=== PATIENT | female | born 1960 | race Two or more races ===

== ENCOUNTER 2021-08-15 07:05 | Outpatient (CLI) | payer OTHER | END 2021-08-15 07:22 | disposition home or self-care (01) | LOC: RX STUDY 07:05 | PROVIDERS: ATTEND Internal Medicine Gastroenterology | DX: K21.00 Gastro-esophageal reflux disease with esophagitis, without bleeding (principal); K29.50 Unspecified chronic gastritis without bleeding; K44.9 Diaphragmatic hernia without obstruction or gangrene ==